=== PATIENT | female | born 1995 | race Caucasian/White ===

== ENCOUNTER 2023-03-03 11:29 | Inpatient (IN) | payer BC ==
[~2023-03-03] VITALS: Ht 167.6 cm; Wt 88.0 kg
[2023-03-03] MEDS: LR 1,000 ML IV SCH (11:40)
[2023-03-03] MEDS ORDERED: BETAMET ACET/BETAMET NA PH 30 MG/5 ML VIAL IM ONE (11:45)
[2023-03-03] MEDS ORDERED: NALBUPHINE HCL 10 MG/ML AMP IVP PRN (11:45)
[2023-03-03] MEDS ORDERED: MAGNESIUM SULFATE IN WATER 100 ML IV ONE (11:45)
[2023-03-03] MEDS ORDERED: TERBUTALINE SULFATE 1 MG/ML VIAL SUBCUT ONE (11:45)
[2023-03-03] MEDS ORDERED: LR 1,000 ML IV ONE (11:45)
[2023-03-03 11:57] LABS: BILIRUBIN,URINE NEGATIVE (NEGATIVE); BLOOD, URINE 3+ (NEGATIVE); CLARITY/URINE CLOUDY (CLEAR); COLOR,URINE YELLOW (YELLOW); GLUCOSE,URINE NEGATIVE (NEGATIVE); KETONES,URINE 1+ (NEGATIVE); LEUKOCYTE ESTERASE ,URINE 2+ (NEGATIVE); NITRITE, URINE NEGATIVE (NEGATIVE); PH,URINE 6.5 (5.0-8.0); PROTEIN URINE 1+ (NEGATIVE); UROBILINOGEN,URINE 0.2 (0.2-1.0)
[2023-03-03 11:58] LABS: BASOPHILS % (AUTO) 0.2 % (0.0-2.0); EOSINOPHILS % (AUTO) 0.4 % (0.0-4.0); HEMATOCRIT 33.1 % (36-48); HEMOGLOBIN 10.5 g/dL (12.0-16.0); LYMPHOCYTES % (AUTO) 20.4 % (20.5-51.5); MEAN CORPUSCULAR HEMOGLOBIN 25 pg (27-31); MEAN CORPUSCULAR HGB CONC 32 % (32-36); MEAN CORPUSCULAR VOLUME 78 fL (79.0-98.0); MONOCYTES # (AUTO) 0.7 K/uL (0.0-1.0); MONOCYTES % (AUTO) 6.8 % (1.7-9.3); NEUTROPHILS % (AUTO) 72.2 % (40.0-70.0); PLATELET COUNT (AUTO) 218 K/uL (130-430); RED BLOOD CELL COUNT(AUTO) 4.24 MIL/uL (4.2-6.2); RED CELL DISTRIBUTION WIDTH 16.3 % (9.0-15.0); WHITE BLOOD COUNT (AUTO) 9.7 K/uL (4.8-10.8)
[2023-03-03] MEDS ORDERED: AMPICILLIN SODIUM 2 GM in NS 100 ML IV ONE (12:00)
[2023-03-03 12:17] LABS: BACTERIA,URINE FEW /HPF (None Seen); RBC,URINE 20-50 /HPF (0-3); WBC,URINE 20-50 /HPF (0-3); YEAST,URINE Rare /HPF (None Seen)
[2023-03-03] MEDS: MAGNESIUM SULFATE IN WATER 500 ML IV PRN ×2 (12:19→23:07)
[2023-03-03 12:23] LABS: CALCIUM 7.7 mg/dL (8.4-11.0); CREATININE 0.61 mg/dL (0.55-1.30)
[2023-03-03 12:28] LABS: ALBUMIN 2.2 g/dL (3.4-4.8); TOTAL BILIRUBIN 0.7 mg/dL (0.0-1.0)
[2023-03-03] MEDS ORDERED: AZITHROMYCIN 500 MG in NS 250 ML IV ONE (13:00)
[2023-03-03 13:12] VITALS: BP_SYST 130
[2023-03-03] MEDS: NIFEdipine (O.B. USE ONLY) 10 MG CAPSULE PO SCH ×5 (14:12→20:00)
[2023-03-03] MEDS: AMPICILLIN SODIUM 1 GM in NS 50 ML IV SCH ×2 (17:15→21:04)
[2023-03-04] MEDS: NIFEdipine (O.B. USE ONLY) 10 MG CAPSULE PO SCH ×6 (00:07→21:49)
[2023-03-04] MEDS: AMPICILLIN SODIUM 1 GM in NS 50 ML IV SCH ×4 (00:56→11:54)
[2023-03-04] MEDS: LR 1,000 ML IV SCH (01:01)
[2023-03-04] MEDS: MAGNESIUM SULFATE IN WATER 500 ML IV PRN (09:06)
[2023-03-04] MEDS: DOCUSATE SODIUM 100 MG CAPSULE PO PRN (10:50)
[2023-03-04] MEDS ORDERED: BETAMET ACET/BETAMET NA PH 30 MG/5 ML VIAL IM ONE (12:00)
[2023-03-04] MEDS: AZITHROMYCIN 250 MG in NS 250 ML IV SCH (13:50)
[2023-03-04] MEDS ORDERED: PANTOPRAZOLE SODIUM 40 MG TAB PO ONE (21:45)
[2023-03-04] MEDS: CALCIUM CARBONATE 500 MG/ TAB.CHEW PO PRN (22:17)
[2023-03-05] MEDS: CALCIUM CARBONATE 500 MG/ TAB.CHEW PO PRN (03:02)
[2023-03-05] MEDS ORDERED: NIFEdipine (O.B. USE ONLY) 10 MG CAPSULE PO SCH ×2 (04:00→16:00)
[2023-03-05] MEDS ORDERED: MAG-AL HYDROX/SIMETH 30 ML UDC PO PRN (09:00)
[2023-03-05] MEDS ORDERED: PANTOPRAZOLE SODIUM 40 MG TAB PO SCH (09:00)
[2023-03-05] MEDS: DOCUSATE SODIUM 100 MG CAPSULE PO PRN (09:02)
[2023-03-05] MEDS: AZITHROMYCIN 250 MG in NS 250 ML IV SCH (14:16)
== END 2023-03-05 15:30 | disposition home or self-care (01) | DRG 833 ==
LOC: SPU 11:29
PROVIDERS: ADMIT Specialist; ATTEND Specialist
DX: O60.03 Preterm labor without delivery, third trimester (principal); Z3A.33 33 weeks gestation of pregnancy
CPT/HCPCS: 36415; 80053; 81000; 81002; 85025; 86592; 86886; 86900; 86901; 94760; J0290; J0456; J0702; J3475; J7050

== ENCOUNTER 2023-03-07 08:55 | Inpatient (IN) | payer BC ==
[~2023-03-07] VITALS: Ht 162.6 cm; Wt 90.7 kg
[2023-03-07] MEDS ORDERED: LR 1,000 ML IV SCH (09:00)
[2023-03-07] MEDS ORDERED: NALBUPHINE HCL 10 MG/ML AMP IVP PRN (09:00)
[2023-03-07] MEDS ORDERED: OXYTOCIN/0.9 % SODIUM CHLORIDE 1,000 ML IV SCH ×2 (09:00→11:15)
[2023-03-07] MEDS ORDERED: AMPICILLIN SODIUM 2 GM in NS 100 ML IV ONE (09:00)
[2023-03-07] MEDS ORDERED: LR 1,000 ML IV ONE (09:00)
[2023-03-07] MEDS ORDERED: fentaNYL CITRATE/PF 100 MCG/2 ML AMP ONE (09:21)
[2023-03-07] MEDS ORDERED: ROPIVACAINE HCL/PF 0.2% 200 ML ONE (09:22)
[2023-03-07 09:33] LABS: BASOPHILS % (AUTO) 0.2 % (0.0-2.0); EOSINOPHILS % (AUTO) 0.3 % (0.0-4.0); HEMATOCRIT 34.2 % (36-48); HEMOGLOBIN 10.9 g/dL (12.0-16.0); LYMPHOCYTES # (AUTO) 2.9 K/uL (1.0-5.5); LYMPHOCYTES % (AUTO) 24.5 % (20.5-51.5); MEAN CORPUSCULAR HEMOGLOBIN 25 pg (27-31); MEAN CORPUSCULAR HGB CONC 32 % (32-36); MEAN CORPUSCULAR VOLUME 77 fL (79.0-98.0); MONOCYTES % (AUTO) 8.2 % (1.7-9.3); NEUTROPHILS % (AUTO) 66.8 % (40.0-70.0); PLATELET COUNT (AUTO) 230 K/uL (130-430); RED BLOOD CELL COUNT(AUTO) 4.45 MIL/uL (4.2-6.2); RED CELL DISTRIBUTION WIDTH 16.1 % (9.0-15.0)
[2023-03-07] MEDS ORDERED: AMPICILLIN SODIUM 2 GM VIAL ONE (09:42)
[2023-03-07] MEDS ORDERED: BUPIVACAINE /PF 0.25% 30 ML VIAL INJ ONE (10:18)
[2023-03-07] MEDS ORDERED: DERMOPLAST SPRAY TP PRN (11:15)
[2023-03-07] MEDS ORDERED: OXYCODONE/ACETAMINOPHEN 5-325 TABLET PO PRN (11:15)
[2023-03-07] MEDS ORDERED: DIPHTH,PERTUSS(ACELL),TET VAC 0.5 ML VIAL (Tdap) I.M. PRN (11:15)
[2023-03-07] MEDS ORDERED: ANUSOL 1 EA SUPP.RECT (PREPARATION H) RC PRN (11:15)
[2023-03-07] MEDS ORDERED: WITCH HAZEL LEAF 1 MED.PAD MED.PAD TP PRN (11:15)
[2023-03-07] MEDS ORDERED: NALOXONE HCL 0.4 MG/ML AMP (NARCAN) IVP PRN ×2 (11:15→12:30)
[2023-03-07] MEDS ORDERED: HYDROCORTISONE 0.5% CREAM 28.4 GM CREAM.GM. TP PRN (11:15)
[2023-03-07] MEDS ORDERED: LANOLIN 7 GM OINT. TP PRN (11:15)
[2023-03-07] MEDS ORDERED: MEASLES,MUMPS&RUBELLA VACC/PF 12500 UNIT/0.5 ML VIAL SUBQ PRN (11:15)
[2023-03-07] MEDS ORDERED: METHYLERGONOVINE MALEATE 0.2 MG TABLET PO PRN (11:15)
[2023-03-07] MEDS ORDERED: OXYTOCIN/0.9 % SODIUM CHLORIDE 1,000 ML IV ONE (11:15)
[2023-03-07] MEDS ORDERED: HYDROcodone/ACETAMIN 5-325 MG TAB (NORCO/ VICODIN) PO PRN (11:15)
[2023-03-07] MEDS ORDERED: RHO(D) IMMUNE GLOBULIN/MALTOSE 1500 UNITS/1.3 ML (WINHRO) IM PRN (11:15)
[2023-03-07] MEDS ORDERED: ONDANSETRON HCL 4 MG/2 ML VIAL IVP PRN (12:30)
[2023-03-07] MEDS ORDERED: FENT2mCg/mL-ROPIVA0.2%/NS EPID 200 ML EP SCH (12:30)
[2023-03-07] MEDS ORDERED: DIPHENHYDRAMINE INJ 50 MG/ML VIAL IVP PRN (12:30)
[2023-03-07] MEDS ORDERED: AMPICILLIN SODIUM 1 GM in NS 50 ML IV SCH (13:00)
[2023-03-07] MEDS: OXYCODONE/ACETAMINOPHEN 5-325 TABLET PO PRN ×2 (16:12→22:26)
[2023-03-07] MEDS: IBUPROFEN 600 MG TABLET PO SCH (19:49)
[2023-03-07] MEDS ORDERED: TEMAZEPAM 15 MG CAPSULE PO PRN (21:00)
[2023-03-07] MEDS ORDERED: SENNOSIDES/DOCUSATE SODIUM 1 TAB TABLET(SENOKOT-S) PO SCH (21:00)
[2023-03-08 07:40] LABS: BASOPHILS % (AUTO) 0.2 % (0.0-2.0); EOSINOPHILS # (AUTO) 0.1 K/uL (0.0-0.4); EOSINOPHILS % (AUTO) 0.6 % (0.0-4.0); HEMATOCRIT 27.9 % (36-48); HEMOGLOBIN 9.1 g/dL (12.0-16.0); LYMPHOCYTES # (AUTO) 2.9 K/uL (1.0-5.5); MEAN CORPUSCULAR HEMOGLOBIN 25 pg (27-31); MEAN CORPUSCULAR HGB CONC 33 % (32-36); MEAN CORPUSCULAR VOLUME 77 fL (79.0-98.0); MONOCYTES # (AUTO) 0.8 K/uL (0.0-1.0); NEUTROPHILS # (AUTO) 7.9 K/uL (1.8-7.7); NEUTROPHILS % (AUTO) 67.2 % (40.0-70.0); PLATELET COUNT (AUTO) 191 K/uL (130-430); RED BLOOD CELL COUNT(AUTO) 3.62 MIL/uL (4.2-6.2); RED CELL DISTRIBUTION WIDTH 15.9 % (9.0-15.0); WHITE BLOOD COUNT (AUTO) 11.7 K/uL (4.8-10.8)
[2023-03-08] MEDS ORDERED: DOCUSATE SODIUM 100 MG CAPSULE PO SCH (09:00)
[2023-03-08] MEDS: IBUPROFEN 600 MG TABLET PO SCH (12:31)
== END 2023-03-08 16:00 | disposition home or self-care (01) | DRG 805 ==
LOC: SPU 08:55
PROVIDERS: ADMIT Specialist; ATTEND Specialist
PROC: 10E0XZZ Delivery of Products of Conception, External Approach (ICD-10-PCS; principal; 2023-03-07)
PROC: 0HQ9XZZ Repair Perineum Skin, External Approach (ICD-10-PCS; 2023-03-07)
PROC: 3E0R3BZ Introduction of Anesthetic Agent into Spinal Canal, Percutaneous Approach (ICD-10-PCS; 2023-03-07)
PROC: 00HU33Z Insertion of Infusion Device into Spinal Canal, Percutaneous Approach (ICD-10-PCS; 2023-03-07)
DX: O45.93 Premature separation of placenta, unspecified, third trimester (principal); O60.14X0 Preterm labor third trimester with preterm delivery third trimester, not applicable or unspecified; Z37.0 Single live birth; O70.0 First degree perineal laceration during delivery; Z3A.34 34 weeks gestation of pregnancy
CPT/HCPCS: 36415; 81002; 85025; 86886; 86900; 86901; 88307; 94760; J0290; J2590; J3010; J3490; J7120